=== PATIENT | male | born 1975 | race Caucasian/White ===

== ENCOUNTER → 2018-02-26 | Outpatient (CLI) | payer OTHER ==
[~2018-02-26] MED LIST: ATEN-1 PO; GUAI120L3 PO
[2018-02-26 08:51] LABS: PLATELET COUNT, AUTOMATED 257 K/uL (150-450)
--- NOTE | 2018-02-26 08:56 | EKG ---
FACILITY: [facility] PATIENT NAME: CHEY DE PAZ : [id number] MR: [id number] V: [id number] EXAM DATE: ORDERING PHYSICIAN: MOISE TORREZ TECHNOLOGIST: LEONOR Test Reason : PRE OP Blood Pressure : / mmHG Vent. Rate : 062 BPM Atrial Rate : 062 BPM P-R Int : 122 ms QRS Dur : 094 ms QT Int : 408 ms P-R-T Axes : 071 065 033 degrees QTc Int : 414 ms Normal sinus rhythm Normal ECG No previous ECGs available Confirmed by RENEE PLUNKETT ([id number]) on 02/26/2018 7:38:29 PM Referred By: SHAN Confirmed By:RENEE PLUNKETT
== END ==
LOC: LAB 08:24
PROVIDERS: ATTEND Anesthesiology
DX: Z01.812 Encounter for preprocedural laboratory examination (principal); Z01.810 Encounter for preprocedural cardiovascular examination; S83.203A Other tear of unspecified meniscus, current injury, right knee, initial encounter
CPT/HCPCS: 36415; 82040; 82247; 82310; 82374; 82435; 82565; 82947; 84075; 84132; 84155; 84295; 84450; 84460; 84520; 85025; 93005

== ENCOUNTER → 2018-02-27 | Outpatient (REF) | payer OTHER ==
[2018-02-27 19:43] LABS: PLATELET COUNT, AUTOMATED 294 K/uL (150-450)
== END ==
LOC: ZZSTITCHES 19:21
PROVIDERS: ATTEND Physician Assistant
DX: R10.9 Unspecified abdominal pain (principal); R11.2 Nausea with vomiting, unspecified
CPT/HCPCS: 82040; 82247; 82310; 82374; 82435; 82565; 82947; 83690; 84075; 84132; 84155; 84295; 84450; 84460; 84520; 85025

== ENCOUNTER → 2018-09-11 | Outpatient (CLI) | payer OTHER ==
[~2018-09-11] MED LIST changes: +ALBU2.5V36 INH; +AZIT-1 PO; +BENZ200C15 PO; +PRED20TA6 PO
--- NOTE | 2018-09-11 11:17 | RADIOLOGY IMAGING REPORT ---
FACILITY: [facility] [place] PATIENT NAME: Tay Troy : 1975 MR: [id number] V: [id number] EXAM DATE: ORDERING PHYSICIAN: GLEN ABDI TECHNOLOGIST: Location: [facility] Patient: Tay Troy : 1975 Visit/Account:[id number] Date of Sevice: 09/11/2018 2 VIEWS CHEST INDICATION: Cough, wheezing, shortness of breath x4 days COMPARISON: None available FINDINGS: Heart size within normal limits. Mild heterogeneity within the right middle lobe which may be related to atelectasis although cannot e xclude pneumonia. Mild/moderate central bronchial wall thickening. There is no pneumothorax or pleural effusion. IMPRESSION: 1. Mild heterogeneity within the right middle lobe which may be related to atelectasis although jm ot exclude pneumonia. 2. Central bronchial wall thickening, possibly related to atypical/viral pneumonitis/bronchitis. Report Dictated By: Yves Christie MD at 09/11/2018 11:10 AM Report E-Signed By: Yves Christie MD at 09/11/2018 11:13 AM WSN:[email or web address]
== END ==
LOC: RAD 08:58
PROVIDERS: ATTEND Nurse Practitioner Primary Care
DX: R05 Cough (principal)
CPT/HCPCS: 71046